=== PATIENT | male | born 1950 | race Caucasian/White ===

== ENCOUNTER 2024-12-21 10:49 | Emergency (ER) | payer OTHER, MEDICAID ==
[~2024-12-21] VITALS: Ht 162.6 cm; Wt 50.0 kg
[2024-12-21 11:05] VITALS: O2SAT 99
[2024-12-21] MEDS ORDERED: TETRACAINE 0.5% OPHTH DROPS 4ML BOTHEYE ONE (11:45)
[2024-12-21] MEDS ORDERED: FLUORESCEIN SODIUM 1MG/STRIP BOTHEYE ONE (11:45)
[2024-12-21] MEDS ORDERED: CIPR2.5D20 RIGHTEYE (14:57)
[2024-12-21 15:10] VITALS: BP 110/69; PULSE 72; RESP 14; TEMP 36.2; O2SAT 97
== END 2024-12-21 15:15 | disposition home or self-care (01) ==
LOC: ER 10:49
DX: H16.002 Unspecified corneal ulcer, left eye (principal)
CPT/HCPCS: 99283